=== PATIENT | male | born 1995 | race Two or more races ===

== ENCOUNTER 2025-02-06 08:34 | Inpatient (IN) | payer MEDICAID, SELFPAY ==
[2025-02-06] VITALS (11 sets, daily range): BP systolic 164–181; BP diastolic 118–143; PULSE 80–108; RESP 18–100; TEMP 36.1–37.6; O2SAT 96–100; BMI 19.8; BMI 22.8
--- NOTE | 2025-02-06 08:49 | EKG_ITS ---
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
--- NOTE | 2025-02-06 08:49 | XR_ITS ---
Examination: AP chest single view Technique one AP portable upright chest single view Date and time: February 06, 2025 0910 hours INDICATIONS: Shortness of breath today. FINDINGS: Mild to moderate enlargement cardiac contour Moderate vascular congestion No lobar pneumonia or pulmonary edema IMPRESSION: Mild to moderate enlargement cardiac contour, differential would include pericardial effusion Moderate vascular congestion
--- NOTE | 2025-02-06 08:49 | XR_ITS ---
Examination: Venous duplex lower extremity sonogram, bilateral. Date and time of exam: January and 03/08/2024 0915 hours INDICATIONS: Bilateral legs one year pain beginning 4 days ago Technique: Multiple sonographic images of the deep venous system have been obtained. B-mode/2-D grayscale imaging of vascular structures and Doppler spectral analysis (waveforms) and color performed Both legs are examined. Findings: Deep venous systems do not demonstrate abnormal echogenicity. All visualized deep veins exhibit compressibility. All visualized deep veins exhibit augmentation. Impression: Negative for deep vein thrombosis
--- NOTE | 2025-02-06 08:54 | PD.EDSOB ---
ED SOB =RME/HPI General Chief Complaint: Shortness of Breath/Dyspnea Stated Complaint: SOB, CP Time Seen by Provider: 02/06/25 08:48 Source: patient and EMS Arrival date/time: 02/06/25 08:34 Mode of arrival: EMS Limitations: no limitations RME / HPI RME / HPI Narrative: Patient is a 29-year-old male with medical history notable for CHF, prior methamphetamine use is in the emergency department concerns for shortness of breath. Per the patient he had his car towed, his medications were in his car, and has been out of his medications for the last 3 days. Denies fevers chills cough runny nose abdominal pain dysuria hematuria melena bloody stools drugs alcohol smoking recent travel sick contacts patient was hospitalized at an outside hospital in August for the same indication. At that time he was discharged with metoprolol furosemide spironolactone. Patient does not have any allergies to medications. Patient also concerned of bilateral lower extremity swelling. Related Data Previous Rx's ?Medication ?Instructions ?Recorded aspirin 81 mg capsule 81 mg PO QDAY #30 caps 02/08/25 carvedilol 12.5 mg tablet 12.5 mg PO BID #30 tabs 02/08/25 dapagliflozin propanediol 10 mg 10 mg PO QDAY #30 tabs 02/08/25 tablet furosemide 40 mg tablet 40 mg PO QDAY #30 tabs 02/08/25 sacubitril 49 mg-valsartan 51 mg 1 tab PO QDAY #30 tabs 02/08/25 tablet (Entresto) spironolactone 25 mg tablet 25 mg PO QDAY #30 tabs 02/08/25 Allergies Allergy/AdvReac Type Severity Reaction Status Date / Time No Known Allergies Allergy Verified 02/06/25 16:03 Review of Systems Review of Systems Systems Reviewed: All systems reviewed, normal except as documented Past Medical History Past Medical History CARDIAC: Positive Congestive Heart Failure RESPIRATORY: Negative Chronic Obstructive Pulmonary Disease (COPD) GENITOURINARY: Negative Renal Disease ENDOCRINE: Negative Diabetes Mellitus Type 1 or Diabetes Mellitus Type 2 Social History SMOKING STATUS: Never smoker ED Exam General Limitations: Present no limitations General appearance: Present alert and in no apparent distress Head Head exam: Present atraumatic and normocephalic Eye Eye exam: Present normal appearance ENT ENT exam: Present normal exam, normal oropharynx and mucous membranes moist Neck Neck exam: Present normal inspection and full ROM Chest Chest inspection: Present normal inspection and symmetric chest wall rise Respiratory Respiratory exam: Present normal lung sounds bilaterally and respiratory distress (tachypnea); Absent wheezes or stridor Cardiovascular Cardiovascular exam: Present regular rate and normal rhythm Abdominal Exam Abdominal exam: Present soft and distention; Absent tenderness, guarding or rebound Extremities Exam Extremities exam: Present other (bl LE pitting edema to mid calf) Neurological Exam Neurological exam: Present alert, oriented X3 and CN II-XII intact Psychiatric Psychiatric exam: Present normal affect and normal mood Course Quality Measures none Orders Category Date Time Status Bedside COVID-19 Antigen Test NOW Care 02/06/25 08:48 Completed EKG (ED ONLY) *Do not use* NOW Care 02/06/25 08:49 Completed CXR [XR chest 1V] Stat Exams 02/06/25 08:49 Completed EKG (ED Only) Stat Exams 02/06/25 08:49 Draft US venous doppler LE BI Stat Exams 02/06/25 08:49 Completed BNP [B-Type Natriuretic Peptide] Stat Lab 02/06/25 08:58 Completed CBC Stat Lab 02/06/25 08:58 Completed CMP [Comprehensive Metabolic Panel] Stat Lab 02/06/25 08:58 Completed Drug Screen,Urine Stat Lab 02/06/25 09:37 Completed Influenza A & B Rapid Panel Stat Lab 02/06/25 10:28 Completed Troponin I Stat Lab 02/06/25 08:58 Completed Furosemide Inj [Lasix Inj] Med 02/06/25 11:40 Discontinued 40 mg IVP X1 ONE Vital Signs Vital signs: Vital Signs Temperature 98.1 F 02/06/25 08:39 Pulse Rate 90 02/06/25 08:39 Respiratory Rate 19 02/06/25 08:39 Blood Pressure 175/132 H 02/06/25 08:39 Pulse Oximetry (%) 96 02/06/25 08:39 Oxygen Delivery Method Room Air 02/06/25 08:39 Pulse ox is 96% on room air which is adequate. Shortness of Breath / Dyspnea MDM Narrative MDM Narrative:: Patient is a 29 yo male with an emergency department as an emergency ferment concerns for shortness of breath. Vital signs and exam as listed. Concern for ACS arrhythmia electrolyte abnormality CHF exacerbation among others. Ordered labs EKG chest x-ray. Patient also with bilateral lower extremity swelling, also concern for fluid overload as well as DVTs. Ordered ultrasound. EKG performed today at 850 in the morning, and notable for sinus rhythm, normal intervals, nonspecific T wave changes, T wave inversions in lead I and aVL, not a cardiac alert. Patient is fluid overloaded as BNP>3000. Offered diuresis. Patient requiring supplemental O2. Admitted for CHF exacerbation. Discussed with hospitalist. Patient data External records reviewed:: [facility] previous records and EMS form Clinical information provided by:: patient and EMS Social determinants that could affect healthcare access:: substance use Patient has the following chronic illnesses:: see mdm How is presenting disease/condition affected by chronic disease/condition?: exacerbated by Evaluation data The following diagnostics were reviewed and interpreted by me:: lab results, radiology exam(s) and EKG tracing(s) Lab and/or radiology exams considered but not ordered:: none Interpretation Summary: see mdm Medications / Prescriptions Medications or Prescriptions considered but not ordered:: none Medication administrations:: Medication Administration History Discontinued Medications Acetaminophen (Acetaminophen 325 Mg Tablet) 650 mg PO Q6H PRN PRN Reason: Fever >101.5 or pain 1-3 Stop: 03/08/25 15:09 Aspirin (Aspirin Ec 81 Mg Tabec) 81 mg PO DAILY [facility] Stop: 03/09/25 08:59 Last Admin: 02/08/25 08:23 Dose: 81 mg Documented By: Admin: 02/07/25 08:48 Dose: 81 mg Documented By: Carvedilol (Carvedilol 3.125 Mg Tablet) 3.125 mg PO BIDWM [facility] Stop: 03/09/25 07:59 Last Admin: 02/07/25 08:47 Dose: 3.125 mg Documented By: Carvedilol (Carvedilol 3.125 Mg Tablet) 12.5 mg PO BIDWM [facility] Stop: 03/09/25 17:29 Last Admin: 02/08/25 08:25 Dose: 12.5 mg Documented By: Admin: 02/07/25 17:20 Dose: 12.5 mg Documented By: Dapagliflozin (Dapagliflozin Propanediol 5 Mg Tablet) 10 mg PO QAM [facility] Stop: 03/10/25 08:59 Last Admin: 02/08/25 08:24 Dose: 10 mg Documented By: PORTIA Comments: 1st attempted pull failed, pocket accidently closed, i cancelled and removed a 2nd time Furosemide (Furosemide Inj 10 Mg/Ml 4ml Vial) 40 mg IVP X1 ONE Stop: 02/06/25 11:41 Last Admin: 02/06/25 12:00 Dose: 40 mg Documented By: YURIY Furosemide (Furosemide 40 Mg Tablet) 40 mg PO BID [facility] Stop: 03/08/25 20:59 Furosemide (Furosemide Inj 10 Mg/Ml 4ml Vial) 40 mg IVP BIDD [facility] Stop: 03/08/25 17:59 Last Admin: 02/08/25 05:06 Dose: 40 mg Documented By: Admin: 02/07/25 17:21 Dose: 40 mg Documented By: Admin: 02/07/25 05:40 Dose: 40 mg Documented By: Admin: 02/06/25 17:19 Dose: 40 mg Documented By: SWATHI Furosemide (Furosemide Inj 10 Mg/Ml 4ml Vial) 40 mg IVP QDAY [facility] Stop: 03/11/25 08:59 Heparin Sodium (Porcine) (Heparin Sod Inj 5000 Unit/Ml Vial) 5,000 unit SC Q12HR [facility] Stop: 02/20/25 16:14 Last Admin: 02/08/25 08:26 Dose: 5,000 unit Documented By: PORTIA Co-signed By: SC Admin: 02/07/25 21:40 Dose: 5,000 unit Documented By: RYNE Co-signed By: DAT Admin: 02/07/25 08:51 Dose: 5,000 unit Documented By: Co-signed By: GEMA Admin: 02/06/25 16:30 Dose: 5,000 unit Documented By: SWATHI Co-signed By: WILBER Hydralazine HCl (Hydralazine Hcl 25 Mg Tablet) 25 mg PO TID PRN PRN Reason: SBP >170mmHg Stop: 03/08/25 21:59 Hydralazine HCl (Hydralazine Hcl 25 Mg Tablet) 25 mg PO TID PRN PRN Reason: SBP >170mmHg or DBP >110 Stop: 03/08/25 21:59 Last Admin: 02/07/25 13:11 Dose: 25 mg Documented By: Magnesium Sulfate (Magnesium Sulfate Ivpb) 4 gm in 50 mls @ 12.5 mls/hr IV X1 ONE Stop: 02/07/25 11:33 Last Admin: 02/07/25 08:50 Dose: 12.5 mls/hr Documented By: Losartan Potassium (Losartan Potassium 25 Mg Tablet) 50 mg PO X1 ONE Stop: 02/06/25 16:16 Last Admin: 02/06/25 16:29 Dose: 50 mg Documented By: SWATHI Losartan Potassium (Losartan Potassium 25 Mg Tablet) 50 mg PO QDAY [facility] Stop: 03/09/25 08:59 Last Admin: 02/07/25 08:48 Dose: 50 mg Documented By: Losartan Potassium (Losartan Potassium 25 Mg Tablet) 50 mg PO QDAY [facility] Stop: 03/10/25 08:59 Melatonin (Melatonin 3 Mg Tablet) 3 mg PO HS PRN PRN Reason: insomnia Stop: 03/09/25 20:59 Metoprolol Succinate (Metoprolol Succinate Xl 25 Mg Tabcr) 25 mg PO X1 ONE Stop: 02/06/25 13:48 Last Admin: 02/06/25 16:07 Dose: Not Given Documented By: SWATHI Non-Admin Reason: Discontinued Metoprolol Succinate (Metoprolol Succinate Xl 25 Mg Tabcr) 25 mg PO QDAY [facility] Stop: 03/09/25 08:59 Potassium Chloride (Potassium Chloride 20 Meq Tabcr) 20 meq PO X1 ONE Stop: 02/07/25 07:37 Last Admin: 02/07/25 08:47 Dose: 20 meq Documented By: Sacubitril/Valsartan (Sacubitril 24 Mg/Valsartan 26 Mg Tablet) 2 tab PO BID [facility] Stop: 03/09/25 20:59 Last Admin: 02/08/25 08:23 Dose: 2 tab Documented By: Admin: 02/07/25 21:40 Dose: 2 tab Documented By: RNYE Spironolactone (Spironolactone 25 Mg Tablet) 100 mg PO X1 ONE Stop: 02/06/25 16:16 Last Admin: 02/06/25 16:29 Dose: 100 mg Documented By: SWATHI Spironolactone (Spironolactone 25 Mg Tablet) 100 mg PO QDAY [facility] Stop: 03/09/25 08:59 Spironolactone (Spironolactone 25 Mg Tablet) 25 mg PO QDAY [facility] Stop: 03/09/25 08:59 Last Admin: 02/08/25 08:25 Dose: 25 mg Documented By: Admin: 02/07/25 08:49 Dose: 25 mg Documented By: see above Consultations Consultation(s) initiated? (list below): Yes Consultation #1 (Physician, Specialty, Details): I spoke with hospitalist team B regarding admission. Diagnosis Shortness of Breath Differential Diagnosis: acute exacerbation of chronic obstructive airways disease, congestive heart failure and community acquired pneumonia Most likely diagnosis given after review of the tests above:: CHF exacerbation Elevated troponin Admission Indicated Admission indicated?: indicated Admission Request Was there a request for admission?: Yes Admission Attestation Admission request attestation: Discussed case withHospitalist service regarding admission. Discussed patients ED course, exam findings, labs, and radiology results. The Hospitalist [agrees] to accept the patient for admission. Disposition Plan Disposition Plan: Admit Critical Care Time Critical Care Time Critical Care Time: Yes Total Critical Care Time (min.): 35 Attestation: The high probability of sudden, clinically significant deterioration in the patient's condition required the highest level of my preparedness to intervene urgently. The services I provided to this patient were to treat and/or prevent clinically significant deterioration. Services included the following: chart data review, reviewing nursing notes and/or old charts, documentation time, it systems analyst consultant collaboration regarding findings and treatment options, medication orders and management, direct patient care, vital sign assessments and ordering, interpreting and reviewing diagnostic studies and lab tests. Aggregate critical care time includes only time during which I was engaged in work directly related to the patient's care, as described above, whether at bedside or elsewhere in the Emergency Department. It did not include time spent performing other reported procedures or the services of residents, students, nurses or physician assistants. Discharge Plan Plan Patient Disposition: Admit Acute Care w/in Hospital Patient condition on transfer: Stable Problem List Clinical Impression: CHF exacerbation, Elevated troponin
[2025-02-06 09:29] LABS: Basophils # (Auto) 0.1 Thou/mm3 (0.0-0.2); Basophils % (Auto) 1 % (0-2.5); Eosinophils # (Auto) 0.2 Thou/mm3 (0.0-0.5); Eosinophils % (Auto) 4 % (0-10); Hematocrit 41.9 % (41.0-53.0); Hemoglobin 13.9 g/dL (13.5-16.0); Immature Granulocytes Auto 0.02 Thou/mm3 (0.00-0.00); Lymphocytes # (Auto) 1.7 Thou/mm3 (1.0-4.8); Lymphocytes % (Auto) 27 % (10-50); Mean Corpuscular HGB Conc 33.2 g/dl (31.0-37.0); Mean Corpuscular Hemoglobin 30.7 pg (25.0-35.0); Mean Corpuscular Volume 93 fL (80-100); Monocytes # (Auto) 0.5 Thou/mm3 (0.0-0.8); Monocytes % (Auto) 7 % (0-12); Neutrophils # (Auto) 3.9 Thou/mm3 (1.8-7.7); Neutrophils % (Auto) 61 % (37-80); Nucleated Red Blood Cell # 0.00 Thou/mm3 (0.00-0.00); Nucleated Red Blood Cell % 0 /100 WBC (0); Platelet Count 296 Thou/mm3 (140-440); RDW Standard Deviation 43.1 fL (35.1-43.9); Red Blood Count 4.53 Miln/mm3 (4.50-5.90); White Blood Count 6.4 Thou/mm3 (3.8-10.6)
[2025-02-06 09:52] LABS: Alanine Aminotransferase 56 U/L (10-49); Albumin, Serum 3.4 gm/dL (3.5-5.0); Albumin/Globulin Ratio 2.0 (1.2-2.2); Alkaline Phosphatase 105 U/L (46-116); Anion Gap 8 (7-16); Aspartate Amino Transferase 65 U/L (0-34); BUN/Creatinine Ratio 12 Ratio (12-20); Bilirubin,Total 0.5 mg/dL (0.3-1.2); Blood Urea Nitrogen 16 mg/dL (9-23); Calcium 8.5 mg/dL (8.3-10.6); Calcium (Corrected) 9.0 mg/dL (8.5-10.1); Carbon Dioxide 25.9 mMol/L (20.0-31.0); Chloride 108 mMol/L (98-107); Creatinine (Component) 1.3 mg/dL (0.6-1.3); Estimated Creatinine Clearance 68.7 mL/min (>60); Globulin 1.7 gm/dL (2.3-3.5); Glucose 98 mg/dL (74-106); Osmolality,Calculated 284 (275-295); Potassium 4.0 mMol/L (3.4-5.1); Sodium 142 mMol/L (136-145); Total Protein 5.1 gm/dL (5.7-8.2); eGFR > 60 See Note
[2025-02-06 10:02] LABS: Troponin I 0.051 ng/mL (0.0-0.045)
[2025-02-06 10:15] LABS: B-Type Natriuretic Peptide > 3280 pg/mL (0-100)
[2025-02-06 10:16] LABS: Amphetamine/Methamp Scrn,U Positive (Negative); Barbiturate Screen,Urine Negative (Negative); Benzodiazepines Screen,Urine Negative (Negative); Benzoylecgonine Screen, Ur Negative (Negative); Fentanyl Screen,Urine Negative (Negative); Opiate Screen,Urine Negative (Negative); THC Screen,Urine Negative (Negative)
[2025-02-06 11:01] LABS: Influenza A Ag Negative; Influenza B Ag Negative
[2025-02-06] MEDS: FUROSEMIDE INJ 10 MG/ML 4ML VIAL 40 MG IVP ×2 (12:00→17:19)
[2025-02-06 14:19] LABS: Troponin I 0.038 ng/mL (0.0-0.045)
--- NOTE | 2025-02-06 15:24 | ECHO_ITS ---
Transthoracic Echo Report Ht (in): 68 Wt (lb): 130 Exam Location: Echo Lab Status: Inpatient Emt I/85: Keiry Veras Indications: Procedure Performed: BP: 159 / 89 HR: 59 MEASUREMENTS (Male / Female) Normal Values 2D ECHO LV Diastolic Diameter PLAX 6.9 cm 4.2 - 5.9 / 3.9 - 5.3 cm LV Systolic Diameter PLAX 6.2 cm IVS Diastolic Thickness 1.1 cm 0.6 - 1.0 / 0.6 - 0.9 cm LVPW Diastolic Thickness 1.7 cm 0.6 - 1.0 / 0.6 - 0.9 cm LV Relative Wall Thickness 0.4 LVOT Diameter 1.9 cm LV Ejection Fraction MOD BP 18.8 % >= 55 % LV Cardiac Index MOD BP 1690.5 cm?/min?m? LV Ejection Fraction MOD 4C 18.3 % LV Cardiac Index MOD 4C 1549.6 cm?/min?m? LV Ejection Fraction 4C AL 18.0 % LV Cardiac Index 4C AL 1569.2 cm?/min?m? LV Ejection Fraction MOD 2C 17.9 % LV Cardiac Index MOD 2C 1620.0 cm?/min?m? LV Ejection Fraction 2C AL 19.0 % LV Cardiac Index 2C AL 1758.9 cm?/min?m? LA Volume Index 62.9 cm?/m? 16 - 28 cm?/m? Ascending Aorta Diameter 2.9 cm M-MODE AV Cusp Separation MM 1.2 cm DOPPLER AV Peak Velocity 100.0 cm/s AV Peak Gradient 4.0 mmHg AV Mean Gradient 2.0 mmHg AV Velocity Time Integral 16.9 cm LVOT Peak Velocity 68.4 cm/s LVOT Peak Gradient 1.9 mmHg LVOT Velocity Time Integral 11.6 cm LVOT Cardiac Index 1158.3 cm?/min?m? AV Area Cont Eq vti 1.9 cm? AV Area Cont Eq pk 1.9 cm? MV Area PHT 6.1 cm? Mitral E Point Velocity 82.5 cm/s Mitral A Point Velocity 32.5 cm/s Mitral E to A Ratio 2.5 LV E' Lateral Velocity 4.0 cm/s Mitral E to LV E' Lateral Ratio 20.5 LV E' Septal Velocity 3.5 cm/s Mitral E to LV E' Septal Ratio 23.7 TR Peak Velocity 285.7 cm/s TR Peak Gradient 32.6 mmHg PV Peak Velocity 70.8 cm/s PV Peak Gradient 2.0 mmHg FINDINGS Left Ventricle LV systolic function is severely decreased. Moderate Dilated LV. There is grade II diastolic dysfunction of the left ventricle (pseudonormal filling pattern). The ejection fraction is visually estimated below 20 %. Right Ventricle There is borderline normal global right ventricular systolic function. The estimated right ventricular systolic pressure, 57 mmHg with RAP 3.Severe HTN Left Atrium The left atrial cavity size is moderately increased. Right Atrium The right atrial cavity size is mildly increased. Atrial Septum The interatrial septum appears normal with no evidence of a shunt. Aorta The aorta is normal by two-dimensional, color flow and Doppler interrogation. Mitral Valve The mitral valve is normal by two-dimensional, color flow and Doppler interrogation. [id number] mitral regurgitation. Aortic Valve The aortic valve is trileaflet and normal by two-dimensional, color flow and Doppler interrogation. There is no significant aortic valve regurgitation. Tricuspid Valve The tricuspid valve is normal by two-dimensional, color flow and Doppler interrogation. There is moderate to severe tricuspid valve regurgitation. Pulmonic Valve The pulmonic valve is not well visualized. There is no significant pulmonic valve regurgitation. Vessels The pulmonary artery appears normal. The inferior vena cava pulmonary and hepatic veins appear normal. Pericardium There is a trace pericardial effusion without cardiac tamponade CONCLUSIONS Indication: CHF - previous EF this month 25% Dilataed Cardiomyopathy LV systolic function is severely decreased. Moderate to Severely Dilated LV. Grade II diastolic dysfunction. The ejection fraction is visually estimated below 20 %. 15-20% Low normal RV systolic function. mildly RV dilation. RVSP 57mmHg with RAP 3. Moderate to severe HTN Massively dilated LA and mildly dilated RA. [id number] mitral regurgitation and moderate tricuspid regurgitation There is a trace pericardial effusion without cardiac tamponade Felix Villalobos (Electronically Signed) Final Date: 07 February 2025 17:04
--- NOTE | 2025-02-06 15:37 | PC.SS ---
Patient is a 28 year old male presenting to the hospital for acute CHF exacerbation. ? [employer] Ebony and [employer] student Tiffany met with patient at bedside, role and reason for visit was explained. Patient confirmed demographic information and stated he lives at home with his life partner Jo. Patient stated that in case he is unable to make medical decisions on his own he would like his life partner to make them. Patient stated that he is not connected to any clinics and does not have PCP. His pharmacy of choice is [facility] [place]. Patient stated that once medically clear he will return home and his will provide transportation. PCP: none Decision maker: Jo Brumfield PH:[phone] D//C: home
--- NOTE | 2025-02-06 16:12 | PD.RESHP ---
Documentation for date of: 02/06/25 HPI History of Present Illness Chief complaint: shortness of breath History of present illness: A 29-year-old male with significant past medical history of congestive cardiac failure and methamphetamine abuse presented to the hospital with chief complaints of shortness of breath and chest pain since 3 days. Patient reported that he already had a congestive cardiac failure and is on medications which he ran out a couple of days ago and since then he is not on any medication. Patient reported that he had chest pain but it is localized, able to locate with the help of the finger, nonradiating, not associated with sweating, palpitations. Reported that he is having lower extremity swelling since 5 days and also noted to have PND/orthopnea episodes. Denies fever, nausea, vomitings, palpitations, syncopal episodes, decreased urination, recent sick contacts. Endorsed that her last methamphetamine abuse is 4 days ago. ED course: - Vitals are stable at the time of admission except for elevated blood pressure, 175/132 mmHg - Labs at the time of admission are significant for chloride 108, AST 65, ALT 56, BNP greater than 3280. - Urine toxicology tested positive for methamphetamine - Chest x-ray showed increased cardiac dimension - EKG showed normal sinus rhythm with left axis deviation and poor R wave progression. Noted inverted T waves in lead I, aVL - Patient is admitted for acute on chronic congestive cardiac failure Past medical history: Congestive cardiac failure Past surgical history: Nonsignificant Social history: Currently homeless, has a partner, denies smoking, alcohol and endorsed methamphetamine abuse Allergies: NKDA Review of Systems Review of Systems Systems Reviewed: All systems reviewed, normal except as documented Exam Vital Signs Temp Pulse Resp BP Pulse Ox O2 Del Method O2 Flow Rate 97.2 F 100 20 181/142 H 99 Room Air 3 02/06/25 15:18 02/06/25 15:18 02/06/25 12:21 02/06/25 15:18 02/06/25 15:18 02/06/25 15:18 02/06/25 12:21 Narrative Exam General: Awake. HEENT: Normocephalic, atraumatic, mucous membranes moist. Heart: Regular rate and rhythm, no murmurs. Lungs: Clear to auscultation with no wheezing or crackles. Abdomen: Soft, nondistended, nontender, positive bowel sounds. ?No guarding or rebound tenderness. Neurologic: Alert and oriented x3, no gross neurological deficit, and patient able to move all 4 extremities. Extremities: Bilateral 1+ pitting pedal edema extending upto ankle. Skin: No rash or ecchymoses. Results: Labs 02/07/25 05:17 02/07/25 05:17 Labs: Short CBC 02/06/25 Range/Units 08:58 WBC 6.4 (3.8-10.6) Thou/mm3 Hgb 13.9 (13.5-16.0) g/dL Hct 41.9 (41.0-53.0) % Plt Count 296 (140-440) Thou/mm3 BMP 02/06/25 08:58 Sodium 142 Potassium 4.0 Chloride 108 H Carbon Dioxide 25.9 BUN 16 Creatinine 1.3 Glucose 98 Calcium 8.5 Cardiac Enzymes 02/06/25 02/06/25 Range/Units 08:58 13:56 Troponin I 0.051 H* 0.038 (0.0-0.045) ng/mL Liver Function 02/06/25 Range/Units 08:58 Total Bilirubin 0.5 (0.3-1.2) mg/dL AST 65 H (0-34) U/L ALT 56 H (10-49) U/L Alkaline Phosphatase 105 (46-116) U/L Albumin 3.4 L (3.5-5.0) gm/dL Quality Measures Quality Measures none Medications Home Medications and Allergies Home Medications ?Medication ?Instructions ?Recorded ?Confirmed ?Type furosemide 40 mg tablet 40 mg PO BID 02/06/25 02/06/25 History losartan 50 mg tablet 50 mg PO QDAY 02/06/25 02/06/25 History metoprolol succinate 25 mg 25 mg PO QPM 02/06/25 02/06/25 History tablet,extended release 24 hr potassium chloride 10 mEq 10 meq PO QDAY 02/06/25 02/06/25 History tablet,extended release(part/cryst) Allergies Allergy/AdvReac Type Severity Reaction Status Date / Time No Known Allergies Allergy Verified 02/06/25 16:03 Visit Medications Acetaminophen (Acetaminophen 325 Mg Tablet) 650 mg PO Q6H PRN PRN Reason: Fever >101.5 or pain 1-3 Stop: 03/08/25 15:09 Furosemide (Furosemide Inj 10 Mg/Ml 4ml Vial) 40 mg IVP BIDD [facility] Stop: 03/08/25 17:59 Heparin Sodium (Porcine) (Heparin Sod Inj 5000 Unit/Ml Vial) 5,000 unit SC Q12HR DANIAL Stop: 02/20/25 16:14 Losartan Potassium (Losartan Potassium 25 Mg Tablet) 50 mg PO X1 ONE Stop: 02/06/25 16:16 Losartan Potassium (Losartan Potassium 25 Mg Tablet) 50 mg PO QDAY DANIAL Stop: 03/09/25 08:59 Spironolactone (Spironolactone 25 Mg Tablet) 100 mg PO X1 ONE Stop: 02/06/25 16:16 Spironolactone (Spironolactone 25 Mg Tablet) 100 mg PO QDAY [facility] Stop: 03/09/25 08:59 Discontinued Medications Furosemide (Furosemide Inj 10 Mg/Ml 4ml Vial) 40 mg IVP X1 ONE Stop: 02/06/25 11:41 Last Admin: 02/06/25 12:00 Dose: 40 mg Furosemide (Furosemide 40 Mg Tablet) 40 mg PO BID [facility] Stop: 03/08/25 20:59 Metoprolol Succinate (Metoprolol Succinate Xl 25 Mg Tabcr) 25 mg PO X1 ONE Stop: 02/06/25 13:48 Last Admin: 02/06/25 16:07 Dose: Not Given Metoprolol Succinate (Metoprolol Succinate Xl 25 Mg Tabcr) 25 mg PO QDAY [facility] Stop: 03/09/25 08:59 Assessment & Plan Plan A 29-year-old male with significant past medical history of congestive cardiac failure and methamphetamine abuse presented to the hospital with chief complaints of shortness of breath and chest pain since 3 days and admitted for Acute on chronic congestive cardiac failure # Acute decompensated heart failure # History of CHF # HFrEF, EF 25% - Patient was diagnosed with heart failure an year ago and was admitted in the [facility] at that time - He does not see a PCP and did not follow-up with any doctor after that - He endorsed that he ran out of the medications from that time due to which he is not taking any medications since 4 to 5 days - Since then patient is noted to have worsening shortness of breath, pedal edema, orthopnea, PND - Chest x-ray showed increased cardiac control - EKG showed normal/rhythm with left axis deviation, T wave inversions in leads I, aVL and poor R wave progression - Labs are significant for BNP greater than 3280 Plan - Started on IV Lasix 40 mg twice daily - Started on losartan 50 mg daily - Started on spironolactone 100 mg daily - Strict I&O's, daily weights - Cardiac diet and low-sodium diet, 2 g - Echocardiogram is ordered, will follow-up with results - Will hold metoprolol for now as patient is having acute decompensation # Mild transaminitis - Noted to have AST 65, ALT 56 - Likely due to decompensated heart failure Plan - Ordered hepatitis panel - Will follow-up CMP # Chronic methamphetamine use - Patient reported that he is using methamphetamine for many years - Last usage per patient is 4 to 5 days ago - Urine toxicology tested positive for methamphetamine Plan -Educated on methamphetamine stoppage - Will refer to social insurance administrator Hospital Maintenance: Dispo: Tele DVT ppx: Heparin GI ppx: not needed Diet: Low Cardiac low sodium 2gm IV lines: Peripheral Code status: Full Patient plan of care was discussed with the attending physician, Dr.Tingle Marko Benavidez, PGY2 Attending Provider Attestation/Addendum I have discussed and was present for the essential components of the history, physical examination, diagnosis, and treatment plan with the resident. I agree with the patient's care as documented by the resident and amended herein by me. Francis Zepeda DO. Although this document has been carefully reviewed, there may still be some phonetic and other typographical errors. These errors are purely grammatical due to imperfections in the software program and should not be construed in any way to compromise the substance of the patient's medical care during this visit.
[2025-02-06] MEDS: SPIRONOLACTONE 25 MG TABLET 100 MG PO (16:29)
[2025-02-06] MEDS: LOSARTAN POTASSIUM 25 MG TABLET 50 MG PO (16:29)
[2025-02-06] MEDS: HEPARIN SOD INJ 5000 UNIT/ML VIAL SC (16:30)
[2025-02-06 21:10] LABS: Hepatitis A Antibody IgM Non Reactive (Non React); Hepatitis B Core Antibody IgM Non Reactive (Non React); Hepatitis B Surface Antigen Non Reactive (Non React); Hepatitis C Antibody Non Reactive (Non React)
[2025-02-07] VITALS (15 sets, daily range): BP systolic 131–167; BP diastolic 93–118; PULSE 73–89; RESP 13–99; TEMP 36–36.8; O2SAT 95–99; BMI 21.4
[2025-02-07] MEDS: FUROSEMIDE INJ 10 MG/ML 4ML VIAL 40 MG IVP ×2 (05:40→17:21)
[2025-02-07 05:44] LABS: Basophils # (Auto) 0.1 Thou/mm3 (0.0-0.2); Basophils % (Auto) 1 % (0-2.5); Eosinophils # (Auto) 0.4 Thou/mm3 (0.0-0.5); Eosinophils % (Auto) 4 % (0-10); Hematocrit 46.1 % (41.0-53.0); Hemoglobin 15.8 g/dL (13.5-16.0); Immature Granulocytes Auto 0.01 Thou/mm3 (0.00-0.00); Lymphocytes # (Auto) 1.7 Thou/mm3 (1.0-4.8); Lymphocytes % (Auto) 21 % (10-50); Mean Corpuscular HGB Conc 34.3 g/dl (31.0-37.0); Mean Corpuscular Hemoglobin 31.2 pg (25.0-35.0); Mean Corpuscular Volume 91 fL (80-100); Monocytes # (Auto) 0.5 Thou/mm3 (0.0-0.8); Monocytes % (Auto) 6 % (0-12); Neutrophils # (Auto) 5.5 Thou/mm3 (1.8-7.7); Neutrophils % (Auto) 69 % (37-80); Nucleated Red Blood Cell # 0.00 Thou/mm3 (0.00-0.00); Nucleated Red Blood Cell % 0 /100 WBC (0); Platelet Count 292 Thou/mm3 (140-440); RDW Standard Deviation 41.4 fL (35.1-43.9); Red Blood Count 5.07 Miln/mm3 (4.50-5.90); White Blood Count 8.1 Thou/mm3 (3.8-10.6)
[2025-02-07 05:57] LABS: INR 1.2 (0.9-1.3); Partial Thromboplastin Time 26.9 Seconds (22.0-36.0); Prothrombin Time 12.6 Seconds (9.0-12.2)
[2025-02-07 06:04] LABS: Ferritin 30 ng/mL (10.5-307.3); Iron 30 mcg/dL (65-175); Percent Iron Saturation 9 % (20-55); Total Iron Binding Capacity 302 mcg/dL (250-425); Unsaturated Iron Binding 272 (225-295)
[2025-02-07 06:22] LABS: Glucose Estimated Average 120 mg/dL (80-131); Hemoglobin A1C 5.8 % Hgb (4.8-6.0)
[2025-02-07 06:32] LABS: Anion Gap 9 (7-16); BUN/Creatinine Ratio 10 Ratio (12-20); Blood Urea Nitrogen 13 mg/dL (9-23); Calcium 8.7 mg/dL (8.3-10.6); Carbon Dioxide 30.1 mMol/L (20.0-31.0); Cardiac Risk Estimate 3.0 RATIO (4.0-6.7); Chloride 103 mMol/L (98-107); Cholesterol 154 mg/dL (132-200); Creatinine (Component) 1.3 mg/dL (0.6-1.3); Estimated Creatinine Clearance 68.0 mL/min (>60); Glucose 99 mg/dL (74-106); HDL Cholesterol 52 mg/dL (40-60); LDL Cholesterol,Calculated 86 mg/dL (0-130); Magnesium 1.5 mg/dL (1.6-2.6); Osmolality,Calculated 283 (275-295); Phosphorous 4.0 mg/dL (2.4-5.1); Potassium 3.7 mMol/L (3.4-5.1); Sodium 142 mMol/L (136-145); Thyroid Stimulating Hormone 0.67 uIU/mL (0.55-4.78); Triglycerides 79 mg/dL (30-150); eGFR > 60 See Note
[2025-02-07] MEDS: LOSARTAN POTASSIUM 25 MG TABLET 50 MG PO (08:48)
[2025-02-07] MEDS: ASPIRIN EC 81 MG TABEC PO (08:48)
[2025-02-07] MEDS: SPIRONOLACTONE 25 MG TABLET PO (08:49)
[2025-02-07] MEDS: Magnesium Sulfate 4 GM Ivpb 4 GM/50 ML BAG IV (08:50)
[2025-02-07] MEDS: HEPARIN SOD INJ 5000 UNIT/ML VIAL SC ×2 (08:51→21:40)
--- NOTE | 2025-02-07 10:22 | PC.SS ---
Update: Treatment plan is to diuresis the patient.
--- NOTE | 2025-02-07 13:05 | ESPR_ITS ---
<Statement entered by Ari Harley MD - 02/07/25 18:25> Patient seen and assessed in hospital bed reporting improvement in presenting symptoms, no murmur, continues to have mild nonpitting edema noted bilateral lower extremities. Patient's echo shows moderate to severe dilated LV with grade 2 diastolic dysfunction, ejection fraction is noted to be between 15 to 20% with moderate to severe pulmonary arterial hypertension with RVSP of 57 and mild to moderate mitral and tricuspid regurgitation, there is also trace pericardial effusion noted. Cardiology has been consulted regarding the patient's HFrEF with severe systolic dysfunction with diastolic dysfunction and elevated diastolic blood pressure. Current recommendation is to stop losartan and switch to Entresto 2 tabs twice daily. Will continue to monitor the patient for any acute changes. I have personally seen and examined the patient. I agree with the resident's assessment and plan as documented below. Ari Harley DO PGY-2 Internal Medicine - [facility] Documentation for date of: 02/07/25 Subjective Subjective Interval history: No acute events overnight. No new complaints, reports improvement in symptoms but has persistent bilateral pitting edema. Net negative 1.8L. Still has persistent hypertension, systolics in 150-160s, diastolic 110s. Will increase Coreg to 12.5 mg BID, will continue spiranolactone 25 mg daily and Lasix 40 mg IV BID. Consulted manager simulation Dr. Mackey, recommended starting on Entresto. Pending echo. Anticipate discharge tomorrow once hypertension controlled. Exam Vital Signs Temp Pulse Resp BP Pulse Ox O2 Del Method O2 Flow Rate 96.8 F 80 17 167/113 H 99 Room Air 3 02/07/25 12:02/07/25 12:02/07/25 12:02/07/25 12:02/07/25 12:02/07/25 12:02/06/25 12:21 Narrative Exam Physical Exam General: Awake and in no acute distress. Conversational and non-toxic appearing. HEENT: Normocephalic, atraumatic, mucous membranes moist. Heart: Regular rate and rhythm, normal S1 and S2, no murmurs. Lungs: Clear to auscultation with no wheezing or crackles. Abdomen: Soft, nondistended, nontender, positive bowel sounds. No guarding or rebound tenderness. Neurologic: Alert and oriented x3, no gross neurological deficit, and patient able to move all 4 extremities. Extremities: Bilateral 1+ pitting edema extending up to ankle. Skin: No rash or ecchymoses. Objective Labs 02/08/25 05:00 02/08/25 05:00 Labs: Laboratory Results - last 24 hr 02/06/25 02/07/25 13:56 05:17 WBC 8.1 RBC 5.07 Hgb 15.8 Hct 46.1 MCV 91 MCH 31.2 MCHC 34.3 RDW Std Deviation 41.4 Plt Count 292 Neut % (Auto) 69 Lymph % (Auto) 21 [place] % (Auto) 6 Eos % (Auto) 4 Baso % (Auto) 1 Neut # (Auto) 5.5 Lymph # (Auto) 1.7 [place] # (Auto) 0.5 Eos # (Auto) 0.4 Baso # (Auto) 0.1 Immature Gran # (Auto) 0.01 H Absolute Nucleated RBC 0.00 Immature Gran % 0 Nucleated RBC % 0 PT 12.6 H INR 1.2 APTT 26.9 Sodium 142 Potassium 3.7 Chloride 103 Carbon Dioxide 30.1 Anion Gap 9 BUN 13 Creatinine 1.3 Estim Creat Clear Calc 68.0 eGFR > 60 BUN/Creatinine Ratio 10 L Glucose [address] Glu mg/dL 120 Hemoglobin A1c 5.8 Calculated Osmolality 283 Calcium 8.7 Phosphorus 4.0 Magnesium 1.5 L Iron 30 L TIBC 302 Iron Saturation 9 L Unsat Iron Binding 272 Ferritin 30 Troponin I 0.038 Triglycerides 79 Cholesterol 154 LDL Cholesterol, Calc 86 HDL Cholesterol 52 Cholesterol/HDL Ratio 3.0 L TSH 0.67 Hepatitis A IgM Ab Non Reactive Hep Bs Antigen Non Reactive Hep B Core IgM Ab Non Reactive Hepatitis C Antibody Non Reactive Quality Measures Quality Measures none Assessment & Plan Assessment Current Active Medications: Generic Name Dose Route Start Last Admin Trade Name Freq PRN Reason Stop Dose Admin Acetaminophen 650 mg 02/06/25 15:10 Acetaminophen 325 Mg Tablet PO 03/08/25 15:09 Q6H PRN Fever >101.5 or pain 1-3 Aspirin 81 mg 02/07/25 09:00 02/07/25 08:48 Aspirin Ec 81 Mg Tabec PO 03/09/25 08:59 81 mg DAILY DANIAL Administration Carvedilol 3.125 mg 02/07/25 08:00 02/07/25 08:47 Carvedilol 3.125 Mg Tablet PO 03/09/25 07:59 3.125 mg BIDWM DANIAL Administration Furosemide 40 mg 02/06/25 18:00 02/07/25 05:40 Furosemide Inj 10 Mg/Ml 4ml Vial IVP 03/08/25 17:59 40 mg BIDD DANIAL Administration Heparin Sodium (Porcine) 5,000 unit 02/06/25 16:15 02/07/25 08:51 Heparin Sod Inj 5000 Unit/Ml Vial SC 02/20/25 16:14 5,000 unit Q12HR DANIAL Administration Hydralazine HCl 25 mg 02/07/25 12:53 Hydralazine Hcl 25 Mg Tablet PO 03/08/25 21:59 TID PRN SBP >170mmHg or DBP >110 Losartan Potassium 50 mg 02/07/25 09:00 02/07/25 08:48 Losartan Potassium 25 Mg Tablet PO 03/09/25 08:59 50 mg QDAY DANIAL Administration Spironolactone 25 mg 02/07/25 09:00 02/07/25 08:49 Spironolactone 25 Mg Tablet PO 03/09/25 08:59 25 mg QDAY DANIAL Administration Plan Patient is a 29-year-old male with significant past medical history of congestive cardiac failure and methamphetamine abuse presented on 02/06 for 3-day history of shortness of breath and chest pain, admitted for acute on chronic CHF. # Acute decompensated heart failure # History of CHF # HFrEF, EF 25% Presented with worsening shortness of breath, pedal edema, orthopnea, PND. Takes furosemide 40 mg, losartan 50 mg, metoprolol succinate 25 mg at home but ran out 4 days ago. CXR showed mild to moderate enlarged cardiac contour with moderate vascular congestion. EKG showed normal/rhythm with left axis deviation, T wave inversions in leads I, aVL and poor R wave progression. BNP greater than 3280. Diagnosed with heart failure last year while at [facility]. Patient does not have a PCP that he follows up with. No echo on record. Plan: - IV Lasix 40 mg twice daily - Spironolactone 25 mg daily - Increase carvedilol to 12.5 mg daily - Strict I&O's, daily weights - Cardiac diet and low-sodium diet, 2 g - Follow up echo - Consult manager simulation Dr. Mackey, appreciate recommendations: start Entresto #Mild transaminitis On admission, AST 65, ALT 56. Likely due to decompensated heart failure. Hepatitis panel negative. Denies history of heavy alcohol use. Plan: - CTM CMP #Chronic methamphetamine use Used methamphetamine for many years. Last usage per patient is 4 to 5 days ago. Urine toxicology tested positive for methamphetamine. Plan: -Counseled on cessation - Will refer to social sciences professor Health Maintenance Disposition: tele DVT prophylaxis: heparin GI prophylaxis: not needed Diet: cardiac CODE STATUS: Full Patient plan of care was discussed with the resident, Dr. Harley, and attending physician, Dr. Zepeda. Zoila Garrison, PGY-1 Attending Provider Attestation/Addendum I have discussed and was present for the essential components of the history, physical examination, diagnosis, and treatment plan with the resident. I agree with the patient's care as documented by the resident and amended herein by me. Francis Zepeda, DO. Although this document has been carefully reviewed, there may still be some phonetic and other typographical errors. These errors are purely grammatical due to imperfections in the software program and should not be construed in any way to compromise the substance of the patient's medical care during this visit. Patient seen and evaluated this AM. No acute events overnight, I/Os , labs large unremarkable, echocardiogram pending, will likely obtain cardiology consult once echo results. Due to patient's history of heart failure, patient was started on GDMT to include Coreg, losartan, spironolactone and will continue to diurese with Lasix 40 mg IV twice daily however the patient is close to being euvolemic, I doubt the patient was really in heart failure exacerbation when he came in however we will optimize him before discharge. Will likely change to Entresto however I am worried about the patient's complaints considering methamphetamine abuse. Will continue to monitor closely and replete electrolytes as needed. Patient strongly advised to quit his methamphetamine abuse and he seemed to understand.
--- NOTE | 2025-02-07 14:49 | ESCONSULT_ITS ---
<Statement entered by Rhonda Mackey MD - 02/09/25 10:07> I personally evaluated this patient examined with resident physician PGY 2 Dr. Kendall Stearns he was hospitalized multiple times at [facility] with diagnosed with nonischemic cardiomyopathy did have coronary angiogram May 2024 patient had no CAD normal coronary arteries diagnosed of methamphetamine related nonischemic toxic cardiomyopathy congestive heart failure ran out of medications developed heart failure symptoms came to the hospital again with the symptoms no need for any extensive workup at this time since patient had echo in August [address] [facility] where showed ejection fraction 20%. Recommend guideline directed medical management with beta-norma carvedilol Entresto and GDMT diuretics including spironolactone and furosemide. Aortic patient with resident physician Dr. Kendall Stearns agree with the treatment plan recommendation as documented HPI Data of Consult Consult date: 02/07/25 Requesting Physician: Kuldeep Zepeda DO Admitting Provider: Kuldeep Zepeda DO Attending Provider: Rhonda Mackey MD Primary Care Provider: Physician No Primary/Family Consult Narrative Reason for consult: Heart failure History of present illness: 29-year-old male with past medical history of congestive heart failure with ejection fraction of 15-20%, history of methamphetamine use who presented to the ED due to shortness of breath has become progressive for the past 3 days. Patient states that he is on his goal-directed medical therapy however he ran out of medications for almost a month and then started to have bilateral lower extremity swelling as well as progressive shortness of breath, orthopnea and PND. Patient also had angiogram done this year which was negative. Patient admitted for acute on chronic decompensated heart failure. Cardiology consulted. ED course: BP 175/132, B PATTERN ILLUSTRATOR>3280, UTOX positive for meth. EKG showed normal sinus rhythm PMHx: As above SX Hx: None Social Hx: Denies smoking alcohol and does admit prior methamphetamine use Allergies: None cc:: cc: Kuldeep Zepeda DO Review of Systems Review of Systems Systems Reviewed: All systems reviewed, normal except as documented Exam Vital Signs Temp Pulse Resp BP Pulse Ox O2 Del Method O2 Flow Rate 96.8 F 80 17 167/113 H 99 Room Air 3 02/07/25 12:00 02/07/25 13:11 02/07/25 12:00 02/07/25 13:11 02/07/25 12:00 02/07/25 12:00 02/06/25 12:21 Narrative Exam Physical Exam GENERAL: NAD, AAOx3 HEENT: Moist mucosa. Eyes open, symmetrical, & clear CARDIO: Heart RRR, no obvious murmurs PULM: No noted coughing/dyspnea CTA B/L, no R/W/R GI: Abdomen soft, nondistended, no pain on palpation. BSx4 SKIN/MSK/EXT: No wounds/rashes/edema/amputations, no pain on palpation. Pedal pulses present B/L NEURO: AAOx3, no focal neuro deficits, able to move all 4 extremities Results Labs 02/07/25 05:17 02/07/25 05:17 Labs: Short CBC 02/07/25 Range/Units 05:17 WBC 8.1 (3.8-10.6) Thou/mm3 Hgb 15.8 (13.5-16.0) g/dL Hct 46.1 (41.0-53.0) % Plt Count 292 (140-440) Thou/mm3 BMP 02/07/25 05:17 Sodium 142 Potassium 3.7 Chloride 103 Carbon Dioxide 30.1 BUN 13 Creatinine 1.3 Glucose 99 Calcium 8.7 Quality Measures Quality Measures none Medications Home Medications and Allergies Home Medications ?Medication ?Instructions ?Recorded ?Confirmed ?Type furosemide 40 mg tablet 40 mg PO BID 02/06/25 History losartan 50 mg tablet 50 mg PO QDAY 02/06/2502/06 History metoprolol succinate 25 mg 25 mg PO QPM 02/06/2502/06 History tablet,extended release 24 hr potassium chloride 10 mEq 10 meq PO QDAY 02/06/2501/16 History tablet,extended release(part/cryst) Allergies Allergy/AdvReac Type Severity Reaction Status Date / Time No Known Allergies Allergy Verified 02/06/25 16:03 Visit Medications Acetaminophen (Acetaminophen 325 Mg Tablet) 650 mg PO Q6H PRN PRN Reason: Fever >101.5 or pain 1-3 Stop: 03/08/25 15:09 Aspirin (Aspirin Ec 81 Mg Tabec) 81 mg PO DAILY DANIAL Stop: 03/09/25 08:59 Last Admin: 02/07/25 08:48 Dose: 81 mg Carvedilol (Carvedilol 3.125 Mg Tablet) 12.5 mg PO BIDWM [facility] Stop: 03/09/25 17:29 Furosemide (Furosemide Inj 10 Mg/Ml 4ml Vial) 40 mg IVP BIDD DANIAL Stop: 03/08/25 17:59 Last Admin: 02/07/25 05:40 Dose: 40 mg Heparin Sodium (Porcine) (Heparin Sod Inj 5000 Unit/Ml Vial) 5,000 unit SC Q12HR DANIAL Stop: 02/20/25 16:14 Last Admin: 02/07/25 08:51 Dose: 5,000 unit Hydralazine HCl (Hydralazine Hcl 25 Mg Tablet) 25 mg PO TID PRN PRN Reason: SBP >170mmHg or DBP >110 Stop: 03/08/25 21:59 Last Admin: 02/07/25 13:11 Dose: 25 mg Losartan Potassium (Losartan Potassium 25 Mg Tablet) 50 mg PO QDAY [facility] Stop: 03/09/25 08:59 Last Admin: 02/07/25 08:48 Dose: 50 mg Spironolactone (Spironolactone 25 Mg Tablet) 25 mg PO QDAY DANIAL Stop: 03/09/25 08:59 Last Admin: 02/07/25 08:49 Dose: 25 mg Discontinued Medications Carvedilol (Carvedilol 3.125 Mg Tablet) 3.125 mg PO BIDWM [facility] Stop: 03/09/25 07:59 Last Admin: 02/07/25 08:47 Dose: 3.125 mg Furosemide (Furosemide Inj 10 Mg/Ml 4ml Vial) 40 mg IVP X1 ONE Stop: 02/06/25 11:41 Last Admin: 02/06/25 12:00 Dose: 40 mg Furosemide (Furosemide 40 Mg Tablet) 40 mg PO BID [facility] Stop: 03/08/25 20:59 Hydralazine HCl (Hydralazine Hcl 25 Mg Tablet) 25 mg PO TID PRN PRN Reason: SBP >170mmHg Stop: 03/08/25 21:59 Magnesium Sulfate (Magnesium Sulfate Ivpb) 4 gm in 50 mls @ 12.5 mls/hr IV X1 ONE Stop: 02/07/25 11:33 Last Admin: 02/07/25 08:50 Dose: 12.5 mls/hr Losartan Potassium (Losartan Potassium 25 Mg Tablet) 50 mg PO X1 ONE Stop: 02/06/25 16:16 Last Admin: 02/06/25 16:29 Dose: 50 mg Metoprolol Succinate (Metoprolol Succinate Xl 25 Mg Tabcr) 25 mg PO X1 ONE Stop: 02/06/25 13:48 Last Admin: 02/06/25 16:07 Dose: Not Given Metoprolol Succinate (Metoprolol Succinate Xl 25 Mg Tabcr) 25 mg PO QDAY [facility] Stop: 03/09/25 08:59 Potassium Chloride (Potassium Chloride 20 Meq Tabcr) 20 meq PO X1 ONE Stop: 02/07/25 07:37 Last Admin: 02/07/25 08:47 Dose: 20 meq Spironolactone (Spironolactone 25 Mg Tablet) 100 mg PO X1 ONE Stop: 02/06/25 16:16 Last Admin: 02/06/25 16:29 Dose: 100 mg Spironolactone (Spironolactone 25 Mg Tablet) 100 mg PO QDAY [facility] Stop: 03/09/25 08:59 Assessment & Plan Plan 29-year-old male with past medical history of congestive heart failure with ejection fraction of 15-20%, history of methamphetamine use who presented to the ED due to shortness of breath has become progressive for the past 3 days. Patient states that he is on his goal-directed medical therapy however he ran out of medications for almost a month and then started to have bilateral lower extremity swelling as well as progressive shortness of breath, orthopnea and PND. Patient admitted for acute on chronic decompensated heart failure. Cardiology consulted. 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 Moderate to Severely Dilated LV. Grade II diastolic dysfunction. The ejection fraction is visually estimated 15-20%. Low normal RV systolic function. mildly RV dilation. RVSP 57mmHg with RAP 3. Moderate to severe HTN. Massively dilated LA and mildly dilated RA. [id number] mitral regurgitation and moderate tricuspid regurgitation. There is a trace pericardial effusion without cardiac tamponade Patient also had angiogram which was negative in 2024, no need for new angiogram. ? ARB switched to Entresto 2tabs BID ? Continue IV diuresis ? Continue rest of goal-directed medical therapy ? Keep K>4, Mg>2 ? Provide oxygen as required ? Strict I's and O's ? Fluid restriction #Mild transaminitis #Chronic methamphetamine use -as per primary team Case discussed with my attending Dr. Narendra Stearns MD PGY-2 Disclaimer: Despite multiple revisions, due to the dictation software being used, the document bellow may not be free of grammatical errors including phonetic/typographic errors. However, this does not deter from our commitment to providing health care in the patient's best interest in mind.
[2025-02-08] VITALS (7 sets, daily range): BP systolic 113–136; BP diastolic 78–100; PULSE 61–85; RESP 14–97; TEMP 36.1–36.9; O2SAT 96–99; BMI 21.2
[2025-02-08] MEDS: FUROSEMIDE INJ 10 MG/ML 4ML VIAL 40 MG IVP (05:06)
[2025-02-08 06:16] LABS: Basophils # (Auto) 0.1 Thou/mm3 (0.0-0.2); Basophils % (Auto) 1 % (0-2.5); Eosinophils # (Auto) 0.6 Thou/mm3 (0.0-0.5); Eosinophils % (Auto) 10 % (0-10); Hematocrit 53.9 % (41.0-53.0); Hemoglobin 18.2 g/dL (13.5-16.0); Immature Granulocytes Auto 0.01 Thou/mm3 (0.00-0.00); Lymphocytes # (Auto) 1.4 Thou/mm3 (1.0-4.8); Lymphocytes % (Auto) 23 % (10-50); Mean Corpuscular HGB Conc 33.8 g/dl (31.0-37.0); Mean Corpuscular Hemoglobin 30.4 pg (25.0-35.0); Mean Corpuscular Volume 90 fL (80-100); Monocytes # (Auto) 0.5 Thou/mm3 (0.0-0.8); Monocytes % (Auto) 8 % (0-12); Neutrophils # (Auto) 3.4 Thou/mm3 (1.8-7.7); Neutrophils % (Auto) 58 % (37-80); Nucleated Red Blood Cell # 0.00 Thou/mm3 (0.00-0.00); Nucleated Red Blood Cell % 0 /100 WBC (0); Platelet Count 341 Thou/mm3 (140-440); RDW Standard Deviation 41.2 fL (35.1-43.9); Red Blood Count 5.99 Miln/mm3 (4.50-5.90); White Blood Count 5.9 Thou/mm3 (3.8-10.6)
[2025-02-08 06:20] LABS: Alanine Aminotransferase 44 U/L (10-49); Albumin, Serum 3.4 gm/dL (3.5-5.0); Albumin/Globulin Ratio 1.7 (1.2-2.2); Alkaline Phosphatase 117 U/L (46-116); Anion Gap 5 (7-16); Aspartate Amino Transferase 36 U/L (0-34); BUN/Creatinine Ratio 12 Ratio (12-20); Bilirubin,Total 0.5 mg/dL (0.3-1.2); Blood Urea Nitrogen 14 mg/dL (9-23); Calcium 8.6 mg/dL (8.3-10.6); Calcium (Corrected) 9.1 mg/dL (8.5-10.1); Carbon Dioxide 30.9 mMol/L (20.0-31.0); Chloride 102 mMol/L (98-107); Creatinine (Component) 1.2 mg/dL (0.6-1.3); Estimated Creatinine Clearance 73.2 mL/min (>60); Globulin 2.0 gm/dL (2.3-3.5); Glucose 108 mg/dL (74-106); Osmolality,Calculated 277 (275-295); Potassium 4.2 mMol/L (3.4-5.1); Sodium 138 mMol/L (136-145); Total Protein 5.4 gm/dL (5.7-8.2); eGFR > 60 See Note
[2025-02-08] MEDS: ASPIRIN EC 81 MG TABEC PO (08:23)
[2025-02-08] MEDS: DAPAGLIFLOZIN PROPANEDIOL 5 MG TABLET 10 MG PO (08:24)
[2025-02-08] MEDS: SPIRONOLACTONE 25 MG TABLET PO (08:25)
[2025-02-08] MEDS: HEPARIN SOD INJ 5000 UNIT/ML VIAL SC (08:26)
--- NOTE | 2025-02-08 11:51 | PD.RESPRO ---
Documentation for date of: 02/08/25 Exam Vital Signs Temp Pulse Resp BP Pulse Ox O2 Del Method O2 Flow Rate 97.9 F 85 16 113/78 99 Room Air 3 02/08/25 11:12 02/08/25 11:12 02/08/25 11:12 02/08/25 11:12 02/08/25 11:12 02/08/25 11:12 02/06/25 12:21 Objective Labs 02/08/25 05:00 02/08/25 05:00 Labs: Laboratory Results - last 24 hr 02/08/25 05:00 WBC 5.9 RBC 5.99 H Hgb 18.2 H* D Hct 53.9 H MCV 90 MCH 30.4 MCHC 33.8 RDW Std Deviation 41.2 Plt Count 341 D Neut % (Auto) 58 Lymph % (Auto) 23 Mayes % (Auto) 8 Eos % (Auto) 10 Baso % (Auto) 1 Neut # (Auto) 3.4 Lymph # (Auto) 1.4 Mayes # (Auto) 0.5 Eos # (Auto) 0.6 H Baso # (Auto) 0.1 Immature Gran # (Auto) 0.01 H Absolute Nucleated RBC 0.00 Immature Gran % 0 Nucleated RBC % 0 Sodium 138 Potassium 4.2 D Chloride 102 Carbon Dioxide 30.9 Anion Gap 5 L BUN 14 Creatinine 1.2 Estim Creat Clear Calc 73.2 eGFR > 60 BUN/Creatinine Ratio 12 Glucose 108 H Calculated Osmolality 277 Calcium 8.6 Corrected Calcium 9.1 Total Bilirubin 0.5 AST 36 H ALT 44 Alkaline Phosphatase 117 H Total Protein 5.4 L Albumin 3.4 L Globulin 2.0 L Albumin/Globulin Ratio 1.7 Quality Measures Quality Measures none Assessment & Plan Assessment Current Active Medications: Generic Name Dose Route Start Last Admin Trade Name Freq PRN Reason Stop Dose Admin Acetaminophen 650 mg 02/06/25 15:10 Acetaminophen 325 Mg Tablet PO 03/08/25 15:09 Q6H PRN Fever >101.5 or pain 1-3 Aspirin 81 mg 02/07/25 09:00 02/08/25 08:23 Aspirin Ec 81 Mg Tabec PO 03/09/25 08:59 81 mg DAILY DANIAL Administration Carvedilol 12.5 mg 02/07/25 17:30 02/08/25 08:25 Carvedilol 3.125 Mg Tablet PO 03/09/25 17:29 12.5 mg BIDWM DANIAL Administration Dapagliflozin 10 mg 02/08/25 09:00 02/08/25 08:24 Dapagliflozin Propanediol 5 Mg Tablet PO 03/10/25 08:59 10 mg QAM DANIAL Administration Furosemide 40 mg 02/09/25 09:00 Furosemide Inj 10 Mg/Ml 4ml Vial IVP 03/11/25 08:59 QDAY DANIAL Heparin Sodium (Porcine) 5,000 unit 02/06/25 16:15 02/08/25 08:26 Heparin Sod Inj 5000 Unit/Ml Vial SC 02/20/25 16:14 5,000 unit Q12HR DANIAL Administration Hydralazine HCl 25 mg 02/07/25 12:53 02/07/25 13:11 Hydralazine Hcl 25 Mg Tablet PO 03/08/25 21:59 25 mg TID PRN Administration SBP >170mmHg or DBP >110 Melatonin 3 mg 02/07/25 18:45 Melatonin 3 Mg Tablet PO 03/09/25 20:59 HS PRN insomnia Sacubitril/Valsartan 2 tab 02/07/25 21:00 02/08/25 08:23 Sacubitril 24 Mg/Valsartan 26 Mg Tablet PO 03/09/25 20:59 2 tab BID DANIAL Administration Spironolactone 25 mg 02/07/25 09:00 02/08/25 08:25 Spironolactone 25 Mg Tablet PO 03/09/25 08:59 25 mg QDAY DANIAL Administration
--- NOTE | 2025-02-08 12:55 | PC.CC ---
PA approved for Entresto through 02/08/26. Attempted to reach [facility] - LVM.
--- NOTE | 2025-02-08 14:52 | PD.RESDS ---
Planned Discharge Date 02/08/25 DS: Providers Provider Date of admission: 02/06/25 13:45 Primary care physician: Physician No Primary/Family Admitting Provider: Kuldeep Zepeda DO Attending Provider on Admission: Kuldeep Zepeda DO Consults: 02/07/25 14:08 Consult to Cardiology Routine Comment: Consulting Provider: Rhonda Mackey Attending Provider on DC: Kuldeep eZpeda DO Discharging Provider: Fidencio Maria DO Anticipated date of discharge: 02/08/25 DS: Diagnosis Problem List Completed Was Problem List Reviewed/Reconciled?: Yes Hospital Course Hospital Course Hospital course: Reason for hospitalization: Acute on chronic HF exacerbation Summary: This patient is a 29-year-old male with a past medical history of HFrEF (20 to 25%) and chronic methamphetamine abuse who presented to [facility] ED on 02/06 for shortness of breath and chest pain that started about 3 days ago. The patient was admitted for management of acute on chronic decompensated heart failure exacerbation. The patient stated that about 3 days ago, he had ran out of his medications. This is not new for him as the patient has previously been to [facility] ED multiple times for similar issues. The patient has a very tenuous housing situation, and is chronically in and out of homelessness, so as a result, has very poor follow-up and will often miss doses of his medication. The patient states that he was previously evaluated by Dr. Yu at [facility], who performed an echocardiogram earlier this year that showed an ejection fraction of 20 to 25%. The significantly low ejection fraction is likely secondary to the patient's chronic methamphetamine abuse, to which he stated that he has been using for years. Patient was sufficiently diuresed with Lasix and started on GDMT, to which he tolerated. Echocardiogram was ordered and cardiology was consulted. Echocardiogram showed worsening ejection fraction of 15 to 20%. Cardiology noted that the patient had angiogram performed earlier in 2024, which was negative, so no need for new angiogram, and also started the patient on Entresto. Patient was highly encouraged to stop any future use of methamphetamines, follow-up with cardiology (patient preferred to follow-up with Dr. Yu), and resources for homeless halfway at [place] (per patient's preferences). On 02/08, the patient had stable vitals and stable labs, along with sufficient diuresis, making the patient medically cleared to be discharged to a homeless halfway with plans to follow-up with outpatient cardiology and to continue GDMT. Discharge Recommendations: - Follow up with PCP within 1 week of discharge - Continue rest of medications as previously prescribed - Return to the ED or call EMS if symptoms return and/or worsen - Please take Carvedilol 12.5mg twice daily, Dapagliflozin 10mg once daily, Sacubitril-Valsartan 1 tab once daily, Spironolactone 25mg once daily, Furosemide 40mg once daily, Aspirin 81mg once daily for severe heart failure - Please follow up with outpatient Cardiology within 2 week of discharge If you don't have a PCP, you can make an appointment at the [facility]: 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 Katelyn Maria, PGY-1 Status at Discharge Overall status at discharge: patient is back to baseline Time Spent with Patient Time attestation: Total time spent providing and/or coordinating discharge services: Time spent: Greater than 30 minutes Exam Vital Signs Temp Pulse Resp BP Pulse Ox O2 Del Method O2 Flow Rate 97.9 F 84 18 113/78 99 Room Air 3 02/08/25 11:12 02/08/25 12:07 02/08/25 12:07 02/08/25 11:12 02/08/25 11:12 02/08/25 11:12 02/06/25 12:21 Narrative Exam Physical Exam General: Awake and in no acute distress. Conversational and non-toxic appearing. HEENT: Normocephalic, atraumatic, mucous membranes moist. Heart: Regular rate and rhythm, normal S1 and S2, no murmurs. Lungs: Clear to auscultation with no wheezing or crackles. Abdomen: Soft, nondistended, nontender, positive bowel sounds. No guarding or rebound tenderness. Neurologic: Alert and oriented x3, no gross neurological deficit, and patient able to move all 4 extremities. Extremities: Bilateral 1+ pitting edema extending up to ankle. Skin: No rash or ecchymoses. Discharge Plan Plan Patient Disposition: HOME (Self Care) Patient condition on transfer: Stable Care Plan Goals: Please take Carvedilol 12.5mg twice daily, Dapagliflozin 10mg once daily, Sacubitril-Valsartan 1tab once daily, Spironolactone 25mg once daily, Furosemide 40mg once daily, Aspirin 81mg once daily for severe heart failure Please stop using Methamphetamine use Please follow-up at the [facility] [address] [place] [address] If your symptoms worsen or if you develop new chest pain, shortness of breath, dizziness or loss of consciousness - please come back to the ED immediately. Prescriptions/Referrals Prescriptions/Med Rec: New dapagliflozin propanediol 10 mg tablet 10 mg PO QDAY Qty: 30 3RF carvedilol 12.5 mg tablet 12.5 mg PO BID Qty: 30 3RF Rx Instructions: must administer with a meal/food spironolactone 25 mg tablet 25 mg PO QDAY Qty: 30 2RF furosemide 40 mg tablet 40 mg PO QDAY Qty: 30 3RF aspirin 81 mg capsule 81 mg PO QDAY Qty: 30 3RF sacubitril-valsartan [Entresto] 49-51 mg tablet 1 tab PO QDAY Qty: 30 3RF Discontinued furosemide 40 mg tablet 40 mg PO BID losartan 50 mg tablet 50 mg PO QDAY metoprolol succinate 25 mg tablet extended release 24 hr 25 mg PO QPM potassium chloride 10 mEq tablet,ER particles/crystals 10 meq PO QDAY Referrals: No Primary/Family,Physician [Primary Care Provider] Patient/Caregiver Discharge Instructions Education Materials: Heart Failure: Being Active, Coping with Heart Failure, Heart Failure: Know Your Baselines, Heart Failure: Travel Concerns, ED Heart Failure Congestive Right, ED Heart Disease Education Print Language: Trinidadian Stand Alone Forms: [employer] Award Info., Patient Portal Info Letter Discharge Order Discharge Orders: Discharge (Routine); Ordered 02/08/25 Ordered By: Marko Benavidez Quality Discharge Quality Measures VTE prophylaxis Attestestation Attestation I have discussed and was present for the essential components of the discharge history, physical examination, diagnosis, and discharge treatment plan with the resident. I agree with the patient's discharge care as documented by the resident and amended herein by me. Francis Zepeda DO. The patient understood all discharge instructions, all questions were answered satisfactorily. The patient was instructed to return to the Emergency Department is symptoms worsened or persisted. Patient's heart failure appears to be worsening at this visit with an EF of 15% with associated severe LV systolic dysfunction. Patient discharged on GDMT to include Coreg, spironolactone, Entresto and SGLT 2 inhibitor per cardiology recommendations, see resident note above for additional details. We also strongly counseled the patient the necessity for methamphetamine cessation and he stated he understood. 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 all questions answered satisfactorily, patient stable for discharge home. Although this document has been carefully reviewed, there may still be some phonetic and other typographical errors. These errors are purely grammatical due to imperfections in the software program and should not be construed in any way to compromise the substance of the patient's medical care during this visit.
== END 2025-02-08 14:57 | disposition home or self-care (01) | DRG 194 ==
LOC: SERX 14:01 → SERHOLD 14:49 → S2NX 15:49
PROVIDERS: Admitting Provider Student in an Organized Health Care Education/Training Program; Emergency Provider Emergency Medicine; Visit Provider Student in an Organized Health Care Education/Training Program
DX: I11.0 Hypertensive heart disease with heart failure (principal); I50.23 Acute on chronic systolic (congestive) heart failure; F15.10 Other stimulant abuse, uncomplicated; R74.01 Elevation of levels of liver transaminase levels; I27.21 Secondary pulmonary arterial hypertension; Z59.01 Sheltered homelessness; I08.1 Rheumatic disorders of both mitral and tricuspid valves; Z79.899 Other long term (current) drug therapy; Z91.148 Patient's other noncompliance with medication regimen for other reason; Z59.00 Homelessness unspecified
CPT/HCPCS: 36415; 71045; 80048; 80053; 80061; 80074; 80307; 82728; 83036; 83540; 83550; 83735; 83880; 84100; 84443; 84484; 85025; 85610; 85730; 87502; 87811; 93005; 93306; 93970; 96372; 96374; 96376; 99284; J1644; J1938; J3475; J8499; A9270